=== PATIENT | male | born 1945 | race Caucasian/White ===

== ENCOUNTER 2017-03-28 15:51 | Emergency (ER) | payer MEDICARE, OTHER | END 2017-03-28 18:07 | disposition home or self-care (01) | LOC: FER 15:51 | DX: S69.91XA Unspecified injury of right wrist, hand and finger(s), initial encounter (principal); I10 Essential (primary) hypertension; E11.9 Type 2 diabetes mellitus without complications; K21.9 Gastro-esophageal reflux disease without esophagitis; Z23 Encounter for immunization; W29.8XXA Contact with other powered hand tools and household machinery, initial encounter; Y92.009 Unspecified place in unspecified non-institutional (private) residence as the place of occurrence of the external cause | CPT/HCPCS: 73130; 90471; 96372 ==

== ENCOUNTER → 2022-02-07 | Day surgery (SDC) | payer MEDICARE, OTHER ==
[~2022-02-07] VITALS: Ht 177.8 cm; Wt 90.3 kg
[~2022-02-07] MED LIST: AMARYL2 MG PO; ASPIRIN EC81 MG PO; FIBER625 MG PO; LIPITOR20 MG PO; LISINOPRIL-HCT1 EAC1 PO; MELOXICAM15 MG PO; METFORMIN HCL500 MG PO; NORVASC2.5 MG PO; PRILOSEC20 MG PO; SYNTHROID100 MCG PO; TOPROL XL 50 MG50 MG PO
== END | disposition home or self-care (01) ==
LOC: FAS 07:53
DX: Z12.11 Encounter for screening for malignant neoplasm of colon (principal); K31.9 Disease of stomach and duodenum, unspecified; K63.5 Polyp of colon; K44.9 Diaphragmatic hernia without obstruction or gangrene; R13.10 Dysphagia, unspecified; E11.9 Type 2 diabetes mellitus without complications; I10 Essential (primary) hypertension; K21.9 Gastro-esophageal reflux disease without esophagitis; E78.00 Pure hypercholesterolemia, unspecified; Z87.891 Personal history of nicotine dependence; Z80.0 Family history of malignant neoplasm of digestive organs; Z79.82 Long term (current) use of aspirin; Z98.52 Vasectomy status
CPT/HCPCS: J2704; J7120